=== PATIENT | female | born 1935 | race Caucasian/White ===

== ENCOUNTER → 2017-05-03 | Outpatient (CLI) | payer MEDICARE, OTHER ==
[2016-02-03 13:28] VITALS: BP 148/87
[~2017-05-03] MED LIST: B COMPLEX1 EACH PO; CALCIUM LACTAT650 M1 PO; COENZYME Q10100 M1 PO; LEVAQUIN 5500 MG/TA1 PO; NATURE'S BOUNTY1 TAB PO
[2017-05-03 12:55] LABS: EOS # 0.1 (0.04-0.40); EOS % 1.8 % (1.0-5.0); HEMATOCRIT 41.1 % (37.0-47.0); HEMOGLOBIN 13.6 g/dL (12.5-16.0); LYMPH# 2.1 (1.50-4.00); MEAN CELL VOLUME 90 fl (78-100); MEAN CORPUSCULAR HEMOGLOBIN 30 pg (27-31); MEAN CORPUSCULAR HGB CONC 33 g/dL (33-37); MEAN PLATELET VOLUME 11.5 fl (7.4-10.4); MONO # 0.7 (0.20-0.80); NEU # 4.1 (1.40-6.50); PLATELET COUNT 207 K/mm3 (130-400); RED BLOOD COUNT 4.59 M/mm3 (4.10-5.30); RED CELL DISTRIBUTION WIDTH 13.2 % (11.5-14.5); WHITE BLOOD COUNT 7.1 K/mm3 (4.8-10.8)
[2017-05-03 12:57] LABS: ALBUMIN 3.9 g/dL (3.5-5.0); BUN/CREATININE RATIO 25.8 (6.0-26.0); CALCIUM 9.4 mg/dL (8.4-10.2); POTASSIUM 4.2 mmol/L (3.6-5.0); TOTAL BILIRUBIN 0.6 mg/dL (0.2-1.3); TOTAL PROTEIN 7.1 g/dL (6.3-8.2)
== END ==
LOC: RAD 12:23
PROVIDERS: Internal Medicine
DX: K62.5 Hemorrhage of anus and rectum (principal); R10.9 Unspecified abdominal pain; R07.9 Chest pain, unspecified
CPT/HCPCS: Q9967

== ENCOUNTER → 2017-05-04 | Outpatient (CLI) | payer MEDICARE, OTHER ==
[2016-02-03 13:28] VITALS: BP 148/87
[2017-05-04 12:09] LABS: PH-URINE 7.5 (5.0 - 8.0); URINE APPEARANCE CLOUDY; URINE BILIRUBIN NEGATIVE (NEGATIVE); URINE BLOOD NEGATIVE (NEGATIVE); URINE COLOR YELLOW; URINE GLUCOSE NEGATIVE (NEGATIVE); URINE KETONE NEGATIVE (NEGATIVE); URINE LEUKOCYTE ESTERASE NEGATIVE (NEGATIVE); URINE NITRATE NEGATIVE (NEGATIVE); URINE PROTEIN(semi-quant) NEGATIVE (NEGATIVE); URINE UROBILINOGEN NORMAL (NORMAL)
== END ==
LOC: LAB 10:45
PROVIDERS: Internal Medicine
DX: N39.0 Urinary tract infection, site not specified (principal)

== ENCOUNTER → 2017-11-30 | Outpatient (CLI) | payer MEDICARE, OTHER ==
[2016-02-03 13:28] VITALS: BP 148/87
== END ==
LOC: RAD 11:39
DX: J84.10 Pulmonary fibrosis, unspecified (principal)

== ENCOUNTER 2018-03-29 09:33 | Observation (INO) | payer MEDICARE, OTHER ==
[~2018-03-29] VITALS: Ht 170.2 cm; Wt 64.1 kg
[2018-03-29 09:55] LABS: HEMOGLOBIN 14.4 g/dL (12.5-16.0); MEAN CELL VOLUME 89 fl (78-100); MEAN CORPUSCULAR HEMOGLOBIN 30 pg (27-31); MEAN CORPUSCULAR HGB CONC 34 g/dL (33-37); PLATELET COUNT 222 K/mm3 (130-400); RED BLOOD COUNT 4.82 M/mm3 (4.10-5.30); RED CELL DISTRIBUTION WIDTH 13.4 % (11.5-14.5); WHITE BLOOD COUNT 10.8 K/mm3 (4.8-10.8)
[2018-03-29] MEDS ORDERED: DAILY MULTIPLE1 T18 PO (09:59)
[2018-03-29] MEDS ORDERED: VISION VITAMIN1 EACH PO (10:00)
[2018-03-29 10:13] LABS: LYMPHOCYTE 8 % (20-51); MONOCYTE 8 % (3-10); NEUTROPHILS 84 % (42-75)
[2018-03-29 10:20] LABS: POTASSIUM 4.4 mmol/L (3.6-5.0); TOTAL BILIRUBIN 0.7 mg/dL (0.2-1.3); TOTAL PROTEIN 7.1 g/dL (6.3-8.2)
[2018-03-29 12:32] VITALS: BP 132/69
--- NOTE | 2018-03-29 13:23 | NUR ---
ESCORT PATIENT TO ROOM 202 BY W/C. SHE IS ORIENTED TO ROOM. POSITION PER COMFORT TO BED.
[2018-03-29 13:41] VITALS: BP 128/67
[2018-03-29 14:00] VITALS: BP 128/67
--- NOTE | 2018-03-29 14:40 | NUR ---
UA SPECIMEN COLLECTED AND DELIVERED TO LAB. PATIENT TRIED WARM CHICKEN BROTH AND DID NOT TOLERATE; FEELS NAUSEOUS AND PAIN TO STOMACH INCREASING. PATIENT ALSO REPORTS A HEADACHE THAT SHE BELIEVES IS R/T NOT HAVING HER MORNING COFFEE. DAVID GU NOTIFIED.
[2018-03-29 14:52] LABS: URINE APPEARANCE CLEAR; URINE BILIRUBIN NEGATIVE (NEGATIVE); URINE BLOOD NEGATIVE (NEGATIVE); URINE COLOR YELLOW; URINE GLUCOSE NEGATIVE (NEGATIVE); URINE KETONE NEGATIVE (NEGATIVE); URINE LEUKOCYTE ESTERASE NEGATIVE (NEGATIVE); URINE NITRATE NEGATIVE (NEGATIVE); URINE PROTEIN(semi-quant) TRACE mg/dL (NEGATIVE); URINE UROBILINOGEN NORMAL (NORMAL)
[2018-03-29 18:30] VITALS: BP 122/67
--- NOTE | 2018-03-29 19:35 | NUR ---
REPORT PROVIDED TO SHARON POOL.
--- NOTE | 2018-03-29 19:40 | NUR ---
Report received from Renee SORIANO. Patient resting in bed with IVF infusing at 125 ML/hr. Site patent. Has company at present time. Denies pain or needs, will do shift assessment after company leaves.
--- NOTE | 2018-03-29 20:45 | NUR ---
Ambulating back to bed from toileting and HS cares. Ambualates with SBA from CHEMICAL PROCESS EQUIPMENT OPERATOR. No assistive device. Gait steady. A/O x4. Discussed IV Fentanyl for pain as reported by day nurse she thought she might want some at bedtime. Denies pain. States "I don't thing I need any right now". Denies shortness of breath or cough. IV site patent to RFA with IV fluids infusing NS at 125/HR. No HS medications due at this time. Discussed IV fluids and IV antibiotic doses and times. Assessment completed. Has some tenderness with palpation to RUQ and RLQ. IV site tender if she touches it but otherwise not painful, No pedal edema noted. Denies wants or needs. Bed alarm on. Call light in reach.
--- NOTE | 2018-03-29 23:35 | NUR ---
Awakens briefly for vital signs taken by BLASTING CLAY MINER. IV flagyl hung at this time. Has been sleeping well with no pain reported. Pain level 0/10 at this time.
[2018-03-29 23:41] VITALS: BP 120/68
[2018-03-30] VITALS (8 sets, daily range): BP systolic 107–178; BP diastolic 46–73
--- NOTE | 2018-03-30 04:17 | NUR ---
Remains pain free. Sleeping well. Awaken for V/S. IV Cipro currently infusing at 100 ML/HR.
--- NOTE | 2018-03-30 06:13 | NUR ---
IV site above insertion site, pink, tender to touch. No leaking or increased edema to site. Flushes easily with good blood return. RN in to check for 2nd opinion. Area marked. Will coninue to monitor. Patient wants to avoid a 2nd stick if possible.
[2018-03-30 06:57] LABS: HEMATOCRIT 36.7 % (37.0-47.0); HEMOGLOBIN 11.8 g/dL (12.5-16.0); MEAN CELL VOLUME 92 fl (78-100); MEAN CORPUSCULAR HEMOGLOBIN 30 pg (27-31); MEAN CORPUSCULAR HGB CONC 32 g/dL (33-37); MEAN PLATELET VOLUME 11.2 fl (7.4-10.4); PLATELET COUNT 194 K/mm3 (130-400); RED BLOOD COUNT 3.98 M/mm3 (4.10-5.30); RED CELL DISTRIBUTION WIDTH 13.7 % (11.5-14.5); WHITE BLOOD COUNT 7.3 K/mm3 (4.8-10.8)
[2018-03-30 07:13] LABS: ALBUMIN 2.9 g/dL (3.5-5.0); CALCIUM 8.1 mg/dL (8.4-10.2); POTASSIUM 3.8 mmol/L (3.6-5.0); TOTAL BILIRUBIN 0.8 mg/dL (0.2-1.3); TOTAL PROTEIN 5.4 g/dL (6.3-8.2)
--- NOTE | 2018-03-30 07:23 | NUR ---
Report to Candace SORIANO.
--- NOTE | 2018-03-30 07:30 | NUR ---
Pt very pleasant and states she does feel better this am. Orthos done - pt states "not much dizziness". Lungs clear to auscultation. Denies pain at present but does have LLQ and RLQ pain w/ palpation. Bowel sounds active - reports passing gas. Denies nausea. IV site w/ little redness and is tender where mild swelling is. INT dc'd. Pt requests to shower this am. MANUFACTURING ENGINEERING MANAGER to assist as needed. Pt's gait steady. Remains on clear liquids.
[2018-03-30 07:57] LABS: LYMPHOCYTE 32 % (20-51); MONOCYTE 11 % (3-10); NEUTROPHILS 55 % (42-75)
--- NOTE | 2018-03-30 08:20 | NUR ---
WMP to right forearm after INT dc'd.
--- NOTE | 2018-03-30 08:45 | NUR ---
Pt's old INT site is less swollen. WMP removed. Pt refuses continued WMP at this time.
--- NOTE | 2018-03-30 09:00 | NUR ---
IV restarted in left wrist using 22 gauge insyte w/ immediate blood return. IV infuses NS at 125 mls/hr.
--- NOTE | 2018-03-30 11:00 | NUR ---
Dr. Campos contacted and reports that would like Dr. Dias to cover pt for the weekend. Pt notified.
--- NOTE | 2018-03-30 12:00 | NUR ---
Pt reports that she has belched quite a bit lately. Feels some better but still feels bloated. Encouraged not to use straws in fluids. Family here. Abdomen remains soft but bloated like. Bowel sounds very active at this time. Refuses any pain med when offered. Pt reports that doesn't have any right lower quad pain at this time.
--- NOTE | 2018-03-30 14:30 | NUR ---
Dr. Dias in to speak w/ pt. Pt has ambulated x 3 thus far today. Pt reports she still feels bloated but less. Had loose liquid stool w/ some incontinence earlier. Arina care done. IV fluids continue to infuse per pump at 125 mls/hr. Family has left for short time.
--- NOTE | 2018-03-30 16:21 | NUR ---
Updated pt on POC to dc IV fluids and Meds and change to PO meds. Pt states she is beginning to feel a little bit better. Family here with pt. Remains bloated though she states. Abdomen remains soft.
--- NOTE | 2018-03-30 16:44 | NUR ---
IV FLUIDS COMPLETED AT THIS TIME.
--- NOTE | 2018-03-30 19:15 | NUR ---
Report received from Candace SORIANO. Patient resting supine in bed. A/O x4. Denies pain. "I feel alot better than I did, I had a bowel movement." States it is still "tender" when touched but now more on L side. Discussed use of bed alarms with patient and fall prevention policy, as when night SAUSAGE TIER entered room patient was up ambulating on her own and was "upset" per SAUSAGE TIER at her for stating that she can't be up on her own. Dr. Dias had advised the patient to be up and going as much as possible. Spoke with Dr. Dias on alarm policy and order obtained for patient to have alarms removed and be up ad-seth in room. Patient advised of this and informed that she would still need help when ambulating outside of the room. Discussed with the DX of hx of orthostatic hypotension, medications, etc it makes her a fall risk. Patient verbalizes understanding and says she understands why the SAUSAGE TIER did what she did. Assessment completed. Remains on clear liquids. INT patent to L wrist. Explained to patient still need to keep track of I&0. Verbalizes understanding. Call light in reach.
--- NOTE | 2018-03-31 00:34 | NUR ---
Rests with eyes closed. No signs of pain or distress.
[2018-03-31 02:55] VITALS: BP 133/72
[2018-03-31 06:29] VITALS: BP 132/69
--- NOTE | 2018-03-31 07:04 | NUR ---
Report to Marly SORIANO.
--- NOTE | 2018-03-31 10:40 | NUR ---
INT REMOVED AT THIS TIME.
[2018-03-31 11:16] VITALS: BP 167/67
[2018-03-31] MEDS ORDERED: CIPRO 500MG TA500 MG PO (12:01)
[2018-03-31] MEDS ORDERED: PROTONIX20 M1 PO (12:02)
[2018-03-31] MEDS ORDERED: METRONIDAZOLE500 M1 PO (12:02)
== END 2018-03-31 13:35 | disposition home or self-care (01) ==
LOC: ED 09:33 → MED/SURG 12:45
PROVIDERS: ADMIT Nurse Practitioner Primary Care
DX: K52.9 Noninfective gastroenteritis and colitis, unspecified (principal); I95.1 Orthostatic hypotension; K21.9 Gastro-esophageal reflux disease without esophagitis; K58.2 Mixed irritable bowel syndrome; Z88.5 Allergy status to narcotic agent; Z79.899 Other long term (current) drug therapy
CPT/HCPCS: C9113; G0378; J0744; J1650; J2405; J3010; J3490; J7030; Q9967

== ENCOUNTER → 2018-04-05 | Outpatient (CLI) | payer MEDICARE, OTHER ==
[~2018-04-05] VITALS: Ht 170.2 cm; Wt 64.1 kg
[~2018-04-05] MED LIST changes: +CIPRO 500MG TA500 MG PO; +DAILY MULTIPLE1 T18 PO; +METRONIDAZOLE500 M1 PO; +PROTONIX20 M1 PO; +VISION VITAMIN1 EACH PO
[2018-04-05 14:20] VITALS: BP 134/62
[2018-04-05 14:46] VITALS: BP 134/62
[2018-04-05 16:36] LABS: EOS # 0.2 (0.04-0.40); EOS % 2.9 % (1.0-5.0); HEMATOCRIT 38.8 % (37.0-47.0); LYMPH# 1.9 (1.50-4.00); MEAN CELL VOLUME 89 fl (78-100); MEAN CORPUSCULAR HEMOGLOBIN 30 pg (27-31); MEAN CORPUSCULAR HGB CONC 34 g/dL (33-37); NEU # 3.7 (1.40-6.50); PLATELET COUNT 192 K/mm3 (130-400); RED BLOOD COUNT 4.34 M/mm3 (4.10-5.30); RED CELL DISTRIBUTION WIDTH 13.5 % (11.5-14.5); WHITE BLOOD COUNT 6.8 K/mm3 (4.8-10.8)
[2018-04-05 16:42] LABS: ALBUMIN 3.5 g/dL (3.5-5.0); POTASSIUM 4.8 mmol/L (3.6-5.0); TOTAL PROTEIN 6.3 g/dL (6.3-8.2)
[2018-04-05 17:04] VITALS: BP 173/62
[2018-04-05 17:05] VITALS: BP 173/62
[2018-04-05 17:34] LABS: MEAN PLATELET VOLUME 12.1 fl (7.4-10.4)
[2018-04-05 20:34] LABS: ERYTHROCYTE SEDIMENTATION RATE 11 mm/hr (0-30)
== END ==
LOC: AMSURD 13:50 → LAB 13:50
PROVIDERS: Internal Medicine
DX: E86.0 Dehydration (principal); R19.7 Diarrhea, unspecified; A04.9 Bacterial intestinal infection, unspecified
CPT/HCPCS: J7120

== ENCOUNTER → 2018-08-31 | Outpatient (CLI) | payer MEDICARE, OTHER ==
[2018-04-05 17:05] VITALS: BP 173/62
[2018-08-31 11:37] LABS: URINE APPEARANCE CLEAR; URINE COLOR YELLOW
[2018-08-31 11:38] LABS: URINE BILIRUBIN NEGATIVE (NEGATIVE); URINE BLOOD TRACE (NEGATIVE); URINE GLUCOSE NEGATIVE (NEGATIVE); URINE KETONE NEGATIVE (NEGATIVE); URINE LEUKOCYTE ESTERASE NEGATIVE (NEGATIVE); URINE NITRATE NEGATIVE (NEGATIVE); URINE PROTEIN(semi-quant) TRACE mg/dL (NEGATIVE); URINE UROBILINOGEN NORMAL (NORMAL)
== END ==
LOC: LAB 10:21
PROVIDERS: Internal Medicine
DX: N30.00 Acute cystitis without hematuria (principal)

== ENCOUNTER → 2018-09-27 | Outpatient (CLI) | payer MEDICARE, OTHER ==
[2018-04-05 17:05] VITALS: BP 173/62
== END ==
LOC: LAB 12:13
DX: I63.312 Cerebral infarction due to thrombosis of left middle cerebral artery (principal)

== ENCOUNTER 2020-06-23 15:15 | Emergency (ER) | payer MEDICARE, OTHER ==
[2020-06-23] MEDS ORDERED: PLAQUENIL (15:47)
[2020-06-23 16:21] LABS: EOS # 0.2 (0.04-0.40); EOS % 1.1 % (1.0-5.0); HEMATOCRIT 35.7 % (37.0-47.0); HEMOGLOBIN 11.5 g/dL (12.5-16.0); LYMPH# 2.3 (1.50-4.00); MEAN CELL VOLUME 90 fl (78-100); MEAN CORPUSCULAR HEMOGLOBIN 29 pg (27-31); MEAN CORPUSCULAR HGB CONC 32 g/dL (33-37); MEAN PLATELET VOLUME 10.7 fl (7.4-10.4); PLATELET COUNT 244 K/mm3 (130-400); RED BLOOD COUNT 3.96 M/mm3 (4.10-5.30); RED CELL DISTRIBUTION WIDTH 12.7 % (11.5-14.5); WHITE BLOOD COUNT 14.4 K/mm3 (4.8-10.8)
[2020-06-23 16:22] LABS: MONO # 1.7 (0.20-0.80); NEU # 10.3 (1.40-6.50)
[2020-06-23 16:28] LABS: ALBUMIN 3.5 g/dL (3.4-4.8); POTASSIUM 3.7 mmol/L (3.5-5.1); SODIUM 136 mmol/L (136-145)
[2020-06-23 16:30] LABS: CALCIUM 8.5 mg/dL (8.3-10.5)
[2020-06-23 16:31] LABS: GLUCOSE 139 mg/dL (65-105); TOTAL PROTEIN 6.3 g/dL (6.2-8.1)
[2020-06-23 16:32] LABS: CARBON DIOXIDE 26 mmol/L (23-31)
[2020-06-23 16:33] LABS: TOTAL BILIRUBIN 0.6 mg/dL (0.2-1.2)
[2020-06-23 16:36] LABS: AST-SGOT 22 U/L (5-34)
[2020-06-23 16:37] LABS: ALT/SGPT 17 U/L (0-55)
[2020-06-23 16:38] LABS: URINE APPEARANCE CLOUDY; URINE COLOR YELLOW
[2020-06-23 16:39] LABS: URINE BILIRUBIN NEGATIVE (NEGATIVE); URINE BLOOD TRACE (NEGATIVE); URINE GLUCOSE NEGATIVE (NEGATIVE); URINE KETONE NEGATIVE (NEGATIVE); URINE LEUKOCYTE ESTERASE 2+ (NEGATIVE); URINE NITRATE POSITIVE (NEGATIVE); URINE PROTEIN(semi-quant) 1+ mg/dL (NEGATIVE); URINE UROBILINOGEN NORMAL (NORMAL)
[2020-06-23 16:43] LABS: TROPONIN-I < 0.03 ng/mL (<0.030)
[2020-06-23] MEDS ORDERED: CEFDINIR300 MG PO (18:22)
[2020-06-23 18:29] VITALS: BP 153/80
== END 2020-06-23 18:46 | disposition left against medical advice (07) ==
LOC: ED 15:15
PROVIDERS: Physician Assistant
DX: J18.1 Lobar pneumonia, unspecified organism (principal); N39.0 Urinary tract infection, site not specified; I48.91 Unspecified atrial fibrillation; Z90.710 Acquired absence of both cervix and uterus; Z88.5 Allergy status to narcotic agent; Z88.6 Allergy status to analgesic agent; Z79.899 Other long term (current) drug therapy
CPT/HCPCS: J0696

== ENCOUNTER → 2020-07-23 | Outpatient (CLI) | payer MEDICARE, OTHER ==
[2020-06-23 18:29] VITALS: BP 153/80
[~2020-07-23] MED LIST changes: +CEFDINIR300 MG PO; +PLAQUENIL
[2020-07-23 10:36] LABS: HEMATOCRIT 39.2 % (37.0-47.0); HEMOGLOBIN 12.2 g/dL (12.5-16.0); MEAN CELL VOLUME 91 fl (78-100); MEAN CORPUSCULAR HEMOGLOBIN 28 pg (27-31); MEAN CORPUSCULAR HGB CONC 31 g/dL (33-37); MEAN PLATELET VOLUME 9.9 fl (7.4-10.4); PLATELET COUNT 262 K/mm3 (130-400); RED BLOOD COUNT 4.29 M/mm3 (4.10-5.30); RED CELL DISTRIBUTION WIDTH 13.6 % (11.5-14.5); WHITE BLOOD COUNT 6.1 K/mm3 (4.8-10.8)
[2020-07-23 10:53] LABS: POTASSIUM 4.1 mmol/L (3.5-5.1)
[2020-07-23 10:55] LABS: CALCIUM 9.1 mg/dL (8.3-10.5)
[2020-07-23 10:56] LABS: TOTAL PROTEIN 7.2 g/dL (6.2-8.1)
[2020-07-23 10:58] LABS: TOTAL BILIRUBIN 0.4 mg/dL (0.2-1.2)
[2020-07-23 12:03] LABS: BAND 2 % (0-10); LYMPHOCYTE 32 % (20-51); MONOCYTE 13 % (3-10); NEUTROPHILS 49 % (42-75)
[2020-07-23 12:09] LABS: ERYTHROCYTE SEDIMENTATION RATE 44 mm/hr (0-30)
[2020-07-23 12:39] LABS: D-DIMER 0.69 mg/L FEU (0.15-0.50)
== END ==
LOC: RAD 10:15
PROVIDERS: Internal Medicine
DX: R06.00 Dyspnea, unspecified (principal)

== ENCOUNTER → 2021-01-31 | Outpatient (CLI) | payer MEDICARE, OTHER ==
[2021-01-31 11:16] LABS: BASO # 0.04 (0.02-0.10); EOS # 0.14 (0.04-0.40); EOS % 2.2 % (1.0-5.0); HEMATOCRIT 40.5 % (37.0-47.0); LYMPH# 2.35 (1.50-4.00); MEAN CELL VOLUME 94 fl (78-100); MEAN CORPUSCULAR HEMOGLOBIN 30 pg (27-31); MEAN CORPUSCULAR HGB CONC 32 g/dL (33-37); MEAN PLATELET VOLUME 10.4 fl (7.4-10.4); MONO # 0.61 (0.20-0.80); NEU # 3.17 (1.40-6.50); PLATELET COUNT 238 K/mm3 (130-400); RED CELL DISTRIBUTION WIDTH 12.9 % (11.5-14.5); WHITE BLOOD COUNT 6.3 K/mm3 (4.8-10.8)
[2021-01-31 11:26] LABS: ALBUMIN 4.1 g/dL (3.4-4.8)
[2021-01-31 11:27] LABS: CALCIUM 9.5 mg/dL (8.3-10.5)
[2021-01-31 11:28] LABS: TOTAL PROTEIN 7.6 g/dL (6.2-8.1)
[2021-01-31 11:30] LABS: TOTAL BILIRUBIN 0.4 mg/dL (0.2-1.2)
== END ==
LOC: RAD 10:57
PROVIDERS: Internal Medicine
DX: I48.0 Paroxysmal atrial fibrillation (principal); K90.9 Intestinal malabsorption, unspecified; M16.0 Bilateral primary osteoarthritis of hip

== ENCOUNTER → 2021-08-09 | Outpatient (CLI) | payer MEDICARE, OTHER ==
[2021-08-09 13:14] LABS: BASO # 0.03 K/mm3 (0.02-0.10); EOS # 0.09 K/mm3 (0.04-0.40); EOS % 1.1 % (1.0-5.0); HEMATOCRIT 37.3 % (37.0-47.0); HEMOGLOBIN 11.9 g/dL (12.5-16.0); LYMPH# 2.49 K/mm3 (1.50-4.00); MEAN CELL VOLUME 94 fl (78-100); MEAN CORPUSCULAR HEMOGLOBIN 30 pg (27-31); MEAN CORPUSCULAR HGB CONC 32 g/dL (33-37); MEAN PLATELET VOLUME 10.9 fl (7.4-10.4); MONO # 0.87 K/mm3 (0.20-0.80); NEU # 4.34 K/mm3 (1.40-6.50); PLATELET COUNT 269 K/mm3 (130-400); RED BLOOD COUNT 3.95 M/mm3 (4.10-5.30); RED CELL DISTRIBUTION WIDTH 13.2 % (11.5-14.5); WHITE BLOOD COUNT 7.8 K/mm3 (4.8-10.8)
[2021-08-09 13:26] LABS: ALBUMIN 4.2 g/dL (3.4-4.8); POTASSIUM 4.6 mmol/L (3.5-5.1)
[2021-08-09 13:27] LABS: CALCIUM 9.6 mg/dL (8.3-10.5)
[2021-08-09 13:28] LABS: TOTAL PROTEIN 7.2 g/dL (6.2-8.1)
[2021-08-09 13:30] LABS: TOTAL BILIRUBIN 0.6 mg/dL (0.2-1.2)
[2021-08-09 14:26] LABS: ERYTHROCYTE SEDIMENTATION RATE 22 mm/hr (0-30)
[2021-08-09 16:23] LABS: URINE APPEARANCE CLOUDY; URINE COLOR LIGHT YELLOW; URINE GLUCOSE NEGATIVE (NEGATIVE); URINE KETONE NEGATIVE (NEGATIVE); URINE PROTEIN(semi-quant) TRACE (NEGATIVE)
[2021-08-09 16:24] LABS: URINE BILIRUBIN NEGATIVE (NEGATIVE); URINE BLOOD NEGATIVE (NEGATIVE); URINE LEUKOCYTE ESTERASE TRACE (NEGATIVE); URINE NITRATE POSITIVE (NEGATIVE); URINE UROBILINOGEN NORMAL (NORMAL)
== END ==
LOC: LAB 12:41
PROVIDERS: Internal Medicine
DX: M51.36 Other intervertebral disc degeneration, lumbar region (principal); R10.84 Generalized abdominal pain; K90.9 Intestinal malabsorption, unspecified; G60.9 Hereditary and idiopathic neuropathy, unspecified

== ENCOUNTER → 2021-08-25 | Outpatient (CLI) | payer MEDICARE, OTHER | LOC: RAD 19:00 | DX: M47.816 Spondylosis without myelopathy or radiculopathy, lumbar region (principal); M48.061 Spinal stenosis, lumbar region without neurogenic claudication; M48.07 Spinal stenosis, lumbosacral region ==

== ENCOUNTER → 2023-03-06 | Outpatient (CLI) | payer MEDICARE, OTHER | LOC: RAD 09:11 | DX: R06.00 Dyspnea, unspecified (principal) ==

== ENCOUNTER → 2023-09-11 | Outpatient (CLI) | payer MEDICARE, OTHER ==
[~2023-09-11] MED LIST changes: +ACETAMINOPHEN-H1 TA2 PO; +ATROVENT I0.2 MG/1 M IH; +BRIMONIDINE TAR10 ML OP; +CYCLOBENZ5 MG PO; +FUROSEMIDE20 MG PO; +LATANOPROST 2.2.5 ML OU; +LOSARTAN POTASS25 MG PO; +TRELEGY ELLIPT1 EACH IH
[2023-09-11 11:51] LABS: ALBUMIN 3.6 g/dL (3.4-4.8)
[2023-09-11 11:52] LABS: CALCIUM 9.4 mg/dL (8.3-10.5)
[2023-09-11 11:53] LABS: HEMATOCRIT 36.9 % (37.0-47.0); HEMOGLOBIN 11.7 g/dL (12.5-16.0); LYMPH# 0.93 K/mm3 (1.50-4.00); MEAN CELL VOLUME 92 fl (78-100); MEAN CORPUSCULAR HEMOGLOBIN 29 pg (27-31); MEAN CORPUSCULAR HGB CONC 32 g/dL (33-37); MONO # 0.35 K/mm3 (0.20-0.80); NEU # 15.61 K/mm3 (1.40-6.50); PLATELET COUNT 332 K/mm3 (130-400); RED CELL DISTRIBUTION WIDTH 13.9 % (11.5-14.5); TOTAL PROTEIN 6.6 g/dL (6.2-8.1); WHITE BLOOD COUNT 16.9 K/mm3 (4.8-10.8)
[2023-09-11 11:55] LABS: TOTAL BILIRUBIN 0.4 mg/dL (0.2-1.2)
== END ==
LOC: LAB 11:23
PROVIDERS: Internal Medicine
DX: R06.00 Dyspnea, unspecified (principal)